=== PATIENT | female | born 1995 | race Caucasian/White ===

== ENCOUNTER 2017-11-15 20:14 | Emergency (ER) | payer SELFPAY ==
[~2017-11-15] VITALS: Ht 157.5 cm; Wt 49.9 kg
[2017-11-15 20:24] VITALS: BP_SYST 158
[2017-11-15] MEDS ORDERED: NACL 0.9% 1,000 ML IV ONE ×2 (21:04→23:27)
[2017-11-15] MEDS ORDERED: PROCHLORPERAZINE EDISYLATE 10 MG/2 ML VIAL IVP ONE (21:15)
[2017-11-15] MEDS ORDERED: PANTOPRAZOLE SODIUM 40 MG/VIAL (PROTONIX) IVP ONE (21:15)
[2017-11-15] MEDS ORDERED: chlorproMAZINE HCL 50 MG/ 2 ML AMP IVP ONE (21:15)
[2017-11-15] MEDS ORDERED: DIPHENHYDRAMINE INJ 50 MG/ML VIAL IVP ONE ×2 (21:15→23:30)
[2017-11-15] MEDS ORDERED: KETOROLAC TROMETHAMINE 30 MG VIAL IVP ONE (21:15)
[2017-11-15 21:48] LABS: BASOPHILS % (AUTO) 0.2 % (0.0-2.0); EOSINOPHILS % (AUTO) 0.1 % (0.0-4.0); HEMATOCRIT 49.4 % (36-48); HEMOGLOBIN 16.4 g/dL (12.0-16.0); LYMPHOCYTES # (AUTO) 0.6 K/uL (1.0-5.5); LYMPHOCYTES % (AUTO) 9.9 % (20.5-51.5); MEAN CORPUSCULAR HEMOGLOBIN 30 pg (27-31); MEAN CORPUSCULAR HGB CONC 33 % (32-36); MEAN CORPUSCULAR VOLUME 90 fL (79.0-98.0); MONOCYTES # (AUTO) 0.6 K/uL (0.0-1.0); MONOCYTES % (AUTO) 9.1 % (1.7-9.3); NEUTROPHILS # (AUTO) 5.2 K/uL (1.8-7.7); NEUTROPHILS % (AUTO) 80.7 % (40.0-70.0); PLATELET COUNT (AUTO) 277 K/uL (130-430); RED BLOOD CELL COUNT(AUTO) 5.49 MIL/uL (4.2-6.2); RED CELL DISTRIBUTION WIDTH 11.7 % (9.0-15.0); WHITE BLOOD COUNT (AUTO) 6.4 K/uL (4.8-10.8)
[2017-11-15 21:57] LABS: CREATININE 0.78 mg/dL (0.55-1.30); POTASSIUM 3.6 mmol/L (3.5-5.1)
[2017-11-15 22:01] LABS: ALBUMIN 4.2 g/dL (3.4-4.8); TOTAL BILIRUBIN 0.6 mg/dL (0.0-1.0)
[2017-11-15 22:42] LABS: BILIRUBIN,URINE 1+ (NEGATIVE); BLOOD, URINE 1+ (NEGATIVE); CLARITY/URINE CLEAR (CLEAR); COLOR,URINE YELLOW (YELLOW); GLUCOSE,URINE NEGATIVE (NEGATIVE); KETONES,URINE 1+ (NEGATIVE); LEUKOCYTE ESTERASE ,URINE NEGATIVE (NEGATIVE); NITRITE, URINE NEGATIVE (NEGATIVE); PH,URINE 5.5 (5.0-8.0); PROTEIN URINE 1+ (NEGATIVE); UROBILINOGEN,URINE 0.2 (0.2-1.0)
[2017-11-15 23:02] LABS: BACTERIA,URINE None Seen /HPF (None Seen); WBC,URINE 0-3 /HPF (0-3)
[2017-11-15 23:03] LABS: CALCIUM PHOSPHATE CRYSTALS,UR None Seen /HPF (None Seen); MUCUS,URINE 3+ /LPF (None Seen); TRICHOMONAS,URINE None Seen /HPF (None Seen); YEAST,URINE None Seen /HPF (None Seen)
[2017-11-15] MEDS ORDERED: MORPHINE 2 MG/ML INJ. SYRINGE IVP ONE (23:30)
[2017-11-16 00:45] VITALS: BP_SYST 116
== END 2017-11-16 01:10 | disposition home or self-care (01) ==
LOC: SED 20:14
DX: A08.4 Viral intestinal infection, unspecified (principal); E86.0 Dehydration; Z88.5 Allergy status to narcotic agent; Z87.891 Personal history of nicotine dependence
CPT/HCPCS: 36415; 80053; 81000; 83605; 85025; 86710; 87040; 87086; 96361; 96374; 96375; 96376; 99284; C9113; J1200; J1885; J2270; J3230

== ENCOUNTER 2018-11-20 20:11 | Emergency (ER) | payer BC ==
[~2018-11-20] VITALS: Ht 160 cm; Wt 65.8 kg
[2018-11-20 20:27] VITALS: BP_SYST 125
[2018-11-20] MEDS ORDERED: MORPHINE 4 MG/ML INJ. SYRINGE IM ONE (21:15)
[2018-11-20] MEDS ORDERED: KETOROLAC TROMETHAMINE 30 MG VIAL IM ONE (22:45)
[2018-11-20] MEDS ORDERED: METHOCARBAMOL 500 MG TABLET PO ONE (22:45)
[2018-11-20 23:35] VITALS: BP_SYST 120
== END 2018-11-20 23:35 | disposition home or self-care (01) ==
LOC: SED 20:11
DX: M54.5 Low back pain (principal); Z88.5 Allergy status to narcotic agent
CPT/HCPCS: 81025; 96372; 99283; J1885; J2270

== ENCOUNTER 2020-11-05 10:49 | Emergency (ER) | payer BC, MEDICAID ==
[~2020-11-05] VITALS: Ht 160 cm; Wt 79.4 kg
[2020-11-05 10:55] VITALS: BP_SYST 138
[2020-11-05] MEDS ORDERED: MAG HYDROX/AL HYDROX/SIMETH 30 ML, DICYCLOMINE HCL 20 MG, LIDOCAINE VISCOUS 2% 15ML (PO... PO ONE ×3 (11:30)
[2020-11-05 11:41] LABS: BILIRUBIN,URINE NEGATIVE (NEGATIVE); BLOOD, URINE 1+ (NEGATIVE); CLARITY/URINE CLEAR (CLEAR); COLOR,URINE YELLOW (YELLOW); GLUCOSE,URINE NEGATIVE (NEGATIVE); KETONES,URINE NEGATIVE (NEGATIVE); LEUKOCYTE ESTERASE ,URINE NEGATIVE (NEGATIVE); NITRITE, URINE NEGATIVE (NEGATIVE); PROTEIN URINE NEGATIVE (NEGATIVE); UROBILINOGEN,URINE 0.2 (0.2-1.0)
[2020-11-05 11:53] LABS: BACTERIA,URINE RARE /HPF (None Seen); MUCUS,URINE 1+ /LPF (None Seen); RBC,URINE 0-3 /HPF (0-3); WBC,URINE 0-3 /HPF (0-3)
[2020-11-05 11:55] LABS: BASOPHILS % (AUTO) 0.4 % (0.0-2.0); EOSINOPHILS # (AUTO) 0.1 K/uL (0.0-0.4); EOSINOPHILS % (AUTO) 1.2 % (0.0-4.0); HEMATOCRIT 43.2 % (36-48); LYMPHOCYTES # (AUTO) 2.8 K/uL (1.0-5.5); LYMPHOCYTES % (AUTO) 31.3 % (20.5-51.5); MEAN CORPUSCULAR HEMOGLOBIN 29 pg (27-31); MEAN CORPUSCULAR HGB CONC 34 % (32-36); MEAN CORPUSCULAR VOLUME 85 fL (79.0-98.0); MONOCYTES # (AUTO) 0.5 K/uL (0.0-1.0); NEUTROPHILS # (AUTO) 5.6 K/uL (1.8-7.7); NEUTROPHILS % (AUTO) 62.1 % (40.0-70.0); PLATELET COUNT (AUTO) 355 K/uL (130-430); RED BLOOD CELL COUNT(AUTO) 5.07 MIL/uL (4.2-6.2); RED CELL DISTRIBUTION WIDTH 13.3 % (9.0-15.0)
[2020-11-05 11:56] LABS: HEMOGLOBIN 14.5 g/dL (12.0-16.0)
[2020-11-05 12:07] LABS: ANION GAP 10 (5-15); CALCIUM 8.5 mg/dL (8.4-11.0); CHLORIDE 105 mmol/L (98-107); CREATININE 0.69 mg/dL (0.55-1.30); GLUCOSE 94 mg/dL (70-99); POTASSIUM 3.9 mmol/L (3.5-5.1); SODIUM SERUM 141 mmol/L (136-145); UREA NITROGEN, BLOOD 11 mg/dL (8-21)
[2020-11-05 12:09] LABS: GFR AFRICAN AMERICAN 132 mL/min (>90)
[2020-11-05 12:21] LABS: ALANINE AMINOTRANSFERASE 24 U/L (12-78); ALBUMIN 3.6 g/dL (3.4-4.8); ASPARTATE AMINOTRANSFERASE 11 U/L (10-37); LIPASE 63 U/L (73-393); TOTAL BILIRUBIN 0.3 mg/dL (0.0-1.0)
[2020-11-05] MEDS ORDERED: KETOROLAC TROMETHAMINE 60 MG/2 ML VIAL IM ONE (13:00)
[2020-11-05] MEDS ORDERED: ONDANSETRON 4 MG ODT TAB PO ONE (13:15)
[2020-11-05 14:06] VITALS: BP_SYST 124
[2020-11-05] MEDS ORDERED: ANT30 PO (14:08)
== END 2020-11-05 14:06 | disposition home or self-care (01) ==
LOC: SED 10:49
DX: R10.12 Left upper quadrant pain (principal); R07.89 Other chest pain; Z88.5 Allergy status to narcotic agent
CPT/HCPCS: 36415; 71045; 80053; 81000; 81025; 83690; 84484; 85025; 93005; 96372; 99285; J1885; J2001; Q0162